=== PATIENT | female | born 1975 | race African-American/Black ===

== ENCOUNTER → 2020-03-09 | Outpatient (CLI) | payer OTHER ==
--- NOTE | 2020-03-09 10:32 | Diagnostic Imaging Report ---
CT MAXIO FAC/PARANAS WO HISTORY: Sinusitis; history of renal transplant COMPARISON: None. TECHNIQUE: CT of the sinuses was performed without intravenous contrast. Coronal and sagittal reformations were created. One or more of the following dose reduction techniques were used: Automated exposure control, adjustment of the mA and/or kV according to patient size, and/or utilization of iterative reconstruction technique. DISCUSSION: There is minimal mucosal thickening in the right anterior ethmoid air cells and within a hypoplastic left sphenoid sinus. Otherwise, the paranasal sinuses, major drainage pathways, and nasal cavities are clear. The left frontal sinus is absent (not developed). Other: Nasal septum: At midline. Agger Nasi: Clear bilaterally. Turbinates: Non-aerated bilaterally. Jeannine cells: None. Lamina papyracea: Intact. Cribriform plates: Symmetric. Up to 4 mm deep to the fovea ethmoidalis. Olfactory recesses: Clear. Optic canals: Not dehiscent. Onodi cells: None. Sphenoid sinuses: The lateral recess is aerated on the right. The sphenoid septum is deviated to the left. The internal carotid arteries minimally bulge into the sphenoid sinuses. The internal carotid arteries are from the sphenoid sinuses by a thin plate of bone (measuring up to 1 mm). Orbits: Unremarkable. Intracranial compartment: Carotid siphon calcifications are present. Temporal bones: The left mastoid air cells are underpneumatized and sclerotic. The temporal bones are otherwise grossly unremarkable. Other visualized bones: The bones are diffusely mildly sclerotic. There are mild degenerative changes throughout the imaged spine. Soft tissues: Unremarkable. IMPRESSION: 1. Minimal right anterior ethmoid air cell and left sphenoid sinus mucosal thickening. 2. Otherwise, the paranasal sinuses, major drainage pathways, and nasal cavities are clear. 3. Undeveloped left frontal sinus, an anatomic variant. 4. Mild diffuse osseous sclerosis may be due to renal osteodystrophy. Associated underpneumatized sclerotic left mastoid air cells. Signed by: Dr. Edward West M.D. on 03/09/2020 10:29 AM
== END ==
LOC: CT 09:16
PROVIDERS: ATTEND Otolaryngology
DX: J01.91 Acute recurrent sinusitis, unspecified (principal)
CPT/HCPCS: 70486

== ENCOUNTER → 2024-02-10 | Day surgery (SDC) | payer OTHER ==
[~2024-02-10] MED LIST: ASPIRIN EC81 MG PO; CALCITRIOL0.5 MCG PO; COREG3.125 MG PO; CRESTOR10 MG PO; DIALYVITE 3,001 EACH PO; DICYCLOMINE HCL20 MG PO; FENTANYL CITRATE/PF 100MCG/2 ML INJ ONE; FIRVANQ25 MG/1 ML; GABAPENTIN300 MG PO; LEVOTHYROXINE112 MCG PO; LIDOCAINE HCL 2% LOCAL INJ 5 ML SDV VIAL INJ ONE; LISINOPRIL10 MG PO; ONDANSETRON ODT8 MG PO; PANTOPRAZOLE SO40 MG PO; PROPOFOL IV EMULSION 10 MG/ML 50 ML VIAL IV ONE; SENSIPAR30 MG PO; SODIUM CHLORIDE 0.9% 500ML 500 ML ONE; SODIUM CHLORIDE 0.9% INJ 500 ML BAG ONE; VELPHORO500 MG PO; ZYRTEC10 MG PO
[2024-02-10 11:07] LABS: BASOPHILS % 0.9 % (0.0-1.0); EOSINOPHILS # (AUTO) 0.1 (0.0-0.4); EOSINOPHILS % 4.2 % (0.0-6.0); HEMATOCRIT 40.3 % (34.2-44.1); HEMOGLOBIN 13.1 g/dL (12.0-16.0); LYMPHOCYTES # (AUTO) 1.2 (1.0-3.2); LYMPHOCYTES % 34.7 % (18.0-39.1); MEAN CORPUSCULAR HEMOGLOBIN 27.6 pg (28-32); MEAN CORPUSCULAR HGB CONC 32.5 g/dL (31-35); MEAN CORPUSCULAR VOLUME 84.8 fL (81-99); MONOCYTES # (AUTO) 0.3 (0.2-0.8); MONOCYTES % 7.9 % (4.4-11.3); NEUTROPHILS # (AUTO) 1.7 (2.1-6.9); PLATELET COUNT 147 x10e3/uL (140-360); RED BLOOD COUNT 4.75 x10e6/uL (3.6-5.1); RED CELL DISTRIBUTION WIDTH 17.7 % (11.7-14.4); WHITE BLOOD COUNT 3.31 x10e3/uL (4.8-10.8)
[2024-02-10 11:20] LABS: INR 0.96; PROTHROMBIN TIME 13.5 seconds (11.9-14.5)
[2024-02-10 11:21] LABS: PARTIAL THROMBOPLASTIN TIME 24.6 seconds (23.8-35.5)
[2024-02-10 11:24] LABS: CALCIUM 10.3 mg/dL (8.4-10.2); CREATININE, SERUM 9.81 mg/dL (0.57-1.11)
[2024-02-10 15:25] VITALS: BP 118/64; PULSE 70; RESP 14; O2SAT 97
== END | disposition home or self-care (01) ==
LOC: OR 10:18
PROVIDERS: ATTEND Internal Medicine Gastroenterology
DX: R19.5 Other fecal abnormalities (principal); D12.2 Benign neoplasm of ascending colon; D12.3 Benign neoplasm of transverse colon; D12.8 Benign neoplasm of rectum; K29.50 Unspecified chronic gastritis without bleeding; K22.70 Barrett's esophagus without dysplasia; K31.89 Other diseases of stomach and duodenum; K21.9 Gastro-esophageal reflux disease without esophagitis; K29.80 Duodenitis without bleeding; K63.89 Other specified diseases of intestine; K44.9 Diaphragmatic hernia without obstruction or gangrene; R19.7 Diarrhea, unspecified; E78.5 Hyperlipidemia, unspecified; D64.9 Anemia, unspecified; E03.9 Hypothyroidism, unspecified; E11.22 Type 2 diabetes mellitus with diabetic chronic kidney disease; I12.0 Hypertensive chronic kidney disease with stage 5 chronic kidney disease or end stage renal disease; N18.6 End stage renal disease; Z99.2 Dependence on renal dialysis; Z88.0 Allergy status to penicillin; Z88.2 Allergy status to sulfonamides; Z88.1 Allergy status to other antibiotic agents; Z91.041 Radiographic dye allergy status; Z79.82 Long term (current) use of aspirin; Z79.899 Other long term (current) drug therapy; Z68.32 Body mass index [BMI] 32.0-32.9, adult
CPT/HCPCS: 36415; 43239; 45380; 45384; 45385; 80048; 85025; 85610; 85730; J2001; J2704; J3010; J7040